=== PATIENT | male | born 1995 | race African-American/Black ===

== ENCOUNTER 2021-05-04 09:19 | Emergency (ER) | payer MEDICAID ==
[~2021-05-04] VITALS: Ht 185.4 cm; Wt 86.2 kg
--- NOTE | 2021-05-04 09:31 | NUR ---
SENT TO ER BED 1. BIBS C/O ON AND OFF PALPITATIONS AND LEFT ARM NUMBNESS X1WEEK, HX OF DIABETES, TAKES HUMULOG AND LANTUS. PT ATTACHED TO MONITOR. WARM BLANKET PROVIDED FOR COMFORT. AWAITING MD AMAYA.
--- NOTE | 2021-05-04 09:37 | NUR ---
SEEN AND EVALUATED BY DR NICOLE
--- NOTE | 2021-05-04 09:42 | NUR ---
IV ESTABLISHED R AC #20G. LABS DRAWN AND SENT. CONVERTED TO SALINE LOCK.
[2021-05-04 10:05] LABS: BASOPHILS % (AUTO) 0.8 % (0.0-2.0); EOSINOPHILS % (AUTO) 0.6 % (0.0-6.0); HEMATOCRIT 41 % (39-51); HEMOGLOBIN 13.4 g/dL (13.5-17.5); LYMPHOCYTES # (AUTO) 0.9 K/uL (0.8-4.8); LYMPHOCYTES % (AUTO) 34.6 % (20.0-44.0); MEAN CORPUSCULAR HGB CONC 33 g/dl (31.0-36.0); MEAN CORPUSCULAR VOLUME 84 fL (80-96); MONOCYTES # (AUTO) 0.3 K/uL (0.1-1.30); MONOCYTES % (AUTO) 10.5 % (2.0-12.0); NEUTROPHILS # (AUTO) 1.4 K/uL (1.8-8.9); NEUTROPHILS % (AUTO) 53.5 % (43.0-81.0); PLATELET COUNT (AUTO) 310 K/uL (150-450); RED BLOOD CELL COUNT(AUTO) 4.82 MIL/uL (4.5-6.0); WHITE BLOOD COUNT (AUTO) 2.6 K/uL (4.3-11.0)
[2021-05-04 10:55] LABS: ALANINE AMINOTRANSFERASE 23 U/L (12-78); ALBUMIN 3.5 g/dL (3.4-5.0); ALKALINE PHOSPHATASE 100 U/L (46-116); ASPARTATE AMINOTRANSFERASE 17 U/L (15-37); BILIRUBIN,DIRECT 0.2 mg/dL (0.0-0.2); BILIRUBIN,TOTAL 0.8 mg/dL (0.2-1.0); CARBON DIOXIDE 31 mmol/L (21-32); CHLORIDE 101 mmol/L (98-107); CREATININE 0.9 mg/dL (0.6-1.3); GLUCOSE 104 mg/dL (74-106); POTASSIUM 3.6 mmol/L (3.5-5.1); SODIUM SERUM 137 mmol/L (136-145); TOTAL PROTEIN, SERUM 8.4 g/dL (6.4-8.2); UREA NITROGEN, BLOOD 15 mg/dL (7-18)
--- NOTE | 2021-05-04 11:57 | NUR ---
IV removed. Catheter intact and site benign. Pressure and 4x4 applied to site. No bleeding noted.
--- NOTE | 2021-05-04 11:58 | NUR ---
Patient discharged to home in stable condition. Written and verbal after care instructions given. Patient verbalizes understanding of instruction.
[2021-05-04 11:59] VITALS: BP 138/91
== END 2021-05-04 11:59 | disposition home or self-care (01) ==
LOC: ER 09:26
DX: R00.2 Palpitations (principal); E11.9 Type 2 diabetes mellitus without complications; F12.90 Cannabis use, unspecified, uncomplicated
CPT/HCPCS: 36415; 71045-TC; 80048-TC; 80076-TC; 84484-TC; 85025-TC